=== PATIENT | female | born 2000 | race Caucasian/White ===

== ENCOUNTER 2023-10-20 16:13 | Emergency (ER) | payer OTHER ==
[~2023-10-20] VITALS: Ht 165.1 cm; Wt 117.5 kg
[2023-10-20 16:21] VITALS: BP 125/76; PULSE 80; RESP 16; TEMP 98; O2SAT 99
[2023-10-20] MEDS ORDERED: ACET-10509 PO (17:17)
[2023-10-20] MEDS ORDERED: AMOX500C25 PO (17:17)
[2023-10-20] MEDS ORDERED: OFLO10SO16 RIGHT EAR (17:17)
== END 2023-10-20 17:28 | disposition home or self-care (01) ==
LOC: EDSEX 16:13 → MED 16:13
DX: O99.891 Other specified diseases and conditions complicating pregnancy (principal); H60.501 Unspecified acute noninfective otitis externa, right ear; H66.91 Otitis media, unspecified, right ear; R03.0 Elevated blood-pressure reading, without diagnosis of hypertension; Z3A.21 21 weeks gestation of pregnancy; Z79.899 Other long term (current) drug therapy
CPT/HCPCS: 99283

== ENCOUNTER 2024-01-20 03:48 | Inpatient (IN) | payer MEDICAID, OTHER ==
[~2024-01-20] VITALS: Ht 162.6 cm; Wt 108.9 kg
[~2024-01-20 03:48] MED LIST: ACET-10509 PO; AMOX500C25 PO; OFLO10SO16 RIGHT EAR
[2024-01-20 03:55] VITALS: BP 126/80; PULSE 70; RESP 17; TEMP 97.8; O2SAT 100
[2024-01-20] MEDS: ONDANSETRON 4 MG/2 ML VIAL IVP ONE (04:50)
[2024-01-20] MEDS: MORPHINE SULFATE 4 MG/ML SYR IVP ONE (04:50)
[2024-01-20] MEDS: NACL 0.9% 1,000 ML IV ONE (04:50)
[2024-01-20] MEDS ORDERED: MORPHINE SULFATE 4 MG/ML SYR ONE (05:39)
[2024-01-20 05:43] LABS: BASOPHILS # (AUTO) 0.1 K/uL (0.00-0.22); BASOPHILS % (AUTO) 0.7 % (0.0-2.0); EOSINOPHILS # (AUTO) 0.2 K/uL (0-0.4); EOSINOPHILS % (AUTO) 2.1 % (0.0-4.0); HEMATOCRIT 33.4 % (36-48); HEMOGLOBIN 11.3 g/dL (12.0-16.0); LYMPHOCYTES # (AUTO) 1.8 K/uL (2.5-16.5); MEAN CORPUSCULAR HEMOGLOBIN 30 pg (27-31); MEAN CORPUSCULAR HGB CONC 34 g/dL (33-37); MEAN CORPUSCULAR VOLUME 89.8 fL (80-94); MONOCYTES # (AUTO) 0.5 K/uL (0.8-1.0); MONOCYTES % (AUTO) 7.3 % (1.7-9.3); NEUTROPHILS # (AUTO) 4.8 K/uL (1.8-7.7); NEUTROPHILS % (AUTO) 64.9 % (42.2-75.2); PLATELET COUNT (AUTO) 276 K/uL (140-450); RED BLOOD CELL COUNT(AUTO) 3.72 MIL/uL (4.20-5.40); RED CELL DISTRIBUTION WIDTH 13.7 % (11.6-13.7); WHITE BLOOD COUNT (AUTO) 7.3 K/uL (4.8-10.8)
[2024-01-20 06:19] LABS: ANION GAP 12.5 (8-16); CALCIUM 8.4 mg/dL (8.5-10.1); CARBON DIOXIDE 26.1 mmol/L (21-32); CREATININE 0.9 mg/dL (0.6-1.3); POTASSIUM 3.6 mmol/L (3.5-5.1)
[2024-01-20 06:23] LABS: ALBUMIN 3.3 g/dL (3.4-5.0); TOTAL BILIRUBIN 0.2 mg/dL (0.0-1.0); TOTAL PROTEIN, SERUM 7.2 g/dL (6.4-8.2)
[2024-01-20] MEDS ORDERED: ACETAMINOPHEN 325 MG TAB PO PRN ×2 (06:30→13:55)
[2024-01-20] MEDS ORDERED: HYDROcodone/APAP 5/325 MG 1 TAB TAB PO PRN (06:30)
[2024-01-20] MEDS ORDERED: MORPHINE SULFATE 2 MG/ML SYR IVP PRN (06:30)
[2024-01-20 07:11] LABS: APPEARANCE,URINE SL CLOUDY (CLEAR); BILIRUBIN,URINE NEGATIVE (NEGATIVE); BLOOD, URINE 1+ (NEGATIVE); COLOR,URINE YELLOW (YELLOW); LEUKOCYTE ESTERASE ,URINE 1+ (NEGATIVE); NITRITE, URINE NEGATIVE (NEGATIVE); PROTEIN,URINE TRACE (NEGATIVE); UGLUCOSE NEGATIVE (NEGATIVE); UROBILINOGEN,URINE 0.2 EU/dL (0.2 - 1)
[2024-01-20 07:17] LABS: BACTERIA,URINE FEW /HPF (None Seen); RBC,URINE 11-20 (MOD) /HPF (0-5); SQUAMOUS EPITHELIAL CELL,UR 0-3 (FEW) /LPF (0-3 (FEW)); WBC,URINE 16-25 (MOD) /HPF (0-5)
[2024-01-20] MEDS: ENOXAPARIN 40 MG/0.4 ML SYR SUBQ SCH (09:57)
[2024-01-20] MEDS: NACL 0.9% 1,000 ML IV SCH (10:00)
[2024-01-20 11:09] VITALS: RESP 17; O2SAT 98
[2024-01-20 12:00] VITALS: BP 108/65; RESP 17; TEMP 97.9; O2SAT 98
[2024-01-20] MEDS ORDERED: ACET325C8 PO (14:04)
[2024-01-20 16:00] VITALS: BP 126/85; PULSE 63; RESP 18; TEMP 98.1
[2024-01-20 17:45] LABS: INR 1.02 (0.8-1.2); PARTIAL THROMBOPLASTIN TIME 27.9 secs (22-35.6); PROTHROMBIN TIME 10.7 secs (10.8-13.4)
[2024-01-20 20:00] VITALS: BP 113/68; PULSE 63; PULSE 83; RESP 18; TEMP 98.4; O2SAT 97; O2SAT 98
[2024-01-21 04:00] VITALS: BP 103/60; PULSE 60; RESP 18; TEMP 98.2; O2SAT 94
[2024-01-21 05:41] LABS: MAGNESIUM 1.9 mg/dL (1.8-2.4); PHOSPHORUS 3.6 mg/dL (2.5-4.9)
[2024-01-21 06:03] LABS: ANION GAP 15.2 (8-16); CALCIUM 7.7 mg/dL (8.5-10.1); CARBON DIOXIDE 24.4 mmol/L (21-32); CREATININE 0.7 mg/dL (0.6-1.3); POTASSIUM 3.6 mmol/L (3.5-5.1)
[2024-01-21 07:57] LABS: BASOPHILS % (AUTO) 0.7 % (0.0-2.0); EOSINOPHILS # (AUTO) 0.1 K/uL (0-0.4); EOSINOPHILS % (AUTO) 1.6 % (0.0-4.0); HEMATOCRIT 33.5 % (36-48); HEMOGLOBIN 11.1 g/dL (12.0-16.0); LYMPHOCYTES # (AUTO) 2.2 K/uL (2.5-16.5); LYMPHOCYTES % (AUTO) 37.5 % (20.5-51.1); MEAN CORPUSCULAR HEMOGLOBIN 30 pg (27-31); MEAN CORPUSCULAR HGB CONC 33 g/dL (33-37); MEAN CORPUSCULAR VOLUME 90.4 fL (80-94); MONOCYTES # (AUTO) 0.5 K/uL (0.8-1.0); MONOCYTES % (AUTO) 8.8 % (1.7-9.3); NEUTROPHILS % (AUTO) 51.4 % (42.2-75.2); PLATELET COUNT (AUTO) 251 K/uL (140-450); RED CELL DISTRIBUTION WIDTH 13.8 % (11.6-13.7); WHITE BLOOD COUNT (AUTO) 5.7 K/uL (4.8-10.8)
[2024-01-21 08:00] VITALS: BP 113/65; PULSE 63; RESP 18; TEMP 98.3; O2SAT 97
[2024-01-21] MEDS ORDERED: AMOX500T3 PO (10:15)
[2024-01-21] MEDS ORDERED: PANT40EC PO (10:15)
== END 2024-01-21 12:16 | disposition home or self-care (01) ==
LOC: MED 03:48 → MMU 06:39 → MTU 08:11
PROVIDERS: ADMIT Student in an Organized Health Care Education/Training Program; ATTEND Student in an Organized Health Care Education/Training Program
DX: K80.10 Calculus of gallbladder with chronic cholecystitis without obstruction (principal); Z79.899 Other long term (current) drug therapy
CPT/HCPCS: 36415; 71045; 76705; 80048; 80076; 81001; 81025; 82150; 83690; 83735; 84100; 85025; 85610; 85730; 87081; 87086; J1650; J2270; J2405; Q0092